=== PATIENT | male | born 1980 | race Caucasian/White ===

== ENCOUNTER 2017-01-28 08:44 | Emergency (ER) | payer OTHER, MEDICAID ==
[2017-01-28] MEDS ORDERED: INSULIN REGULAR HUMAN 100 UNIT/ML SC ONE (08:49)
--- NOTE | 2017-01-28 08:53 | EDPHY ---
H & P Source: Patient Exam Limitations: No limitations - Medical/Surgical History Hx Asthma: No Hx Chronic Respiratory Disease: No Hx Diabetes: No Hx Cardiac Disease: No Hx Renal Disease: No Hx Cirrhosis: No Hx Alcoholism: No Other PMH: Bipolar, asthma, diabetes - Family History Significant Family History: No pertinent family hx - Social History Alcohol Use: Sober Drug Use: None HPI/ROS: CHIEF COMPLAINT: Manic HISTORY OF PRESENT ILLNESS: The patient is a 36-year-old man with a history of bipolar who is brought to the emergency department by police and EMS. They state that he was walking in and out of traffic and handed his wallet to a homeless man. Patient reports that he had a week-long stay at [facility] last month. He is also diabetic an 8 this morning and forgot to take his insulin. His blood sugar was 360. He states that he would typically take about 10 units of insulin for this level. He denies fevers or recent illness. He denies chest pain or shortness of breath. REVIEW OF SYSTEMS: Constitutional: denies: chills, fever, recent illness, recent injury EENTM: denies: blurred vision, double vision, nose congestion Respiratory: denies: cough, shortness of breath Cardiac: denies: chest pain, irregular heart rate, lightheadedness, palpitations Gastrointestinal/Abdominal: denies: abdominal pain, diarrhea, nausea, vomiting, blood streaked stools Genitourinary: denies: dysuria, frequency, hematuria, pain Musculoskeletal: denies: joint pain, muscle pain Skin: denies: lesions, rash, jaundice, bruising Neurological: denies: headache, numbness, paresthesia, tingling, dizziness, weakness Hematologic/Lymphatic: denies: blood clots, easy bleeding, easy bruising Immunologic/allergic: denies: HIV/AIDS, transplant EXAM: GENERAL: Well-appearing, well-nourished and in no acute distress. HEAD: Atraumatic, normocephalic. EYES: Pupils equal round and reactive to light, extraocular movements intact, sclera anicteric, conjunctiva are normal. ENT: TMs normal, nares patent, oropharynx clear without exudates. Moist mucous membranes. NECK: Normal range of motion, supple without lymphadenopathy or JVD. LUNGS: Breath sounds clear to auscultation bilaterally and equal. No wheezes rales or rhonchi. HEART: Regular rate and rhythm without murmurs, rubs or gallops. ABDOMEN: Soft, nontender, normoactive bowel sounds. No guarding, no rebound. No masses appreciated. BACK: No CVA tenderness, no spinal tenderness, step-offs or deformities EXTREMITIES: Normal range of motion, no pitting or edema. No clubbing or cyanosis. NEUROLOGICAL: Cranial nerves II through XII grossly intact. Normal speech, normal gait. 5/5 strength, normal movement in all extremities, normal sensation PSYCH: Normal mood, normal affect. SKIN: Warm, dry, normal turgor, no visible rashes or lesions. (Joseluis Hernandez) Constitutional: Initial Vital Signs Temperature (C) 37 C 01/28/17 08:48 Heart Rate 109 H 01/28/17 08:48 Respiratory Rate 20 01/28/17 08:48 Blood Pressure 146/91 H 01/28/17 08:48 O2 Sat (%) 94 01/28/17 08:48 O2 Delivery Mode Room Air Allergies/Adverse Reactions: sulfamethoxazole [From Bactrim] Allergy (Verified 01/28/17 08:54) trimethoprim [From Bactrim] Allergy (Verified 01/28/17 08:54) Home Medications: Medication Instructions Recorded Insulin Glargine,Hum.rec.anlog 17 - 24 unit SQ DAILY 01/28/17 [Toujeo Solostar] Insulin Lispro [Humalog] 0 unit SQ TIDMEAL 01/28/17 Lisinopril [Zestril 5 mg (*)] 5 mg PO DAILY 01/28/17 Medical Decision Making ED Course/Re-evaluation: Mental health has evaluated patient. They plan to admit him to the inpatient psychiatric service. Care transferred to Dr. Jossy Vines at shift change. ( Joseluis Hernandez) Differential Diagnosis: Partial list of the Differential diagnosis considered include but were not limited to; Paco, bipolar, depression, substance abuse and although unlikely based on the history and physical exam, I also considered head injury, infection. (Joseluis Hernandez) Other Provider: I assumed care of the patient from Dr. Hernandez at change of shift, 3:00 p.m.. Patient will be admitted to [facility]. Transfer paperwork was signed by myself and the patient was transferred without incident. (Jossy Vines) - Data Points Laboratory Results: Laboratory Results 01/28/17 09:10 01/28/17 11:45 Medications Given: Discontinued Medications Sodium Chloride (Ns) 1,000 mls @ 0 mls/hr IV ONCE ONE PRN Reason: Wide Open Stop: 01/28/17 10:50 Last Admin: 01/28/17 10:50 Dose: 1,000 mls Insulin Human Regular (Humulin R) 10 unit SC EDNOW ONE Stop: 01/28/17 08:50 Last Admin: 01/28/17 09:08 Dose: 10 units Departure - Departure Disposition: Other Psych, Not [facility] Clinical Impression: Bipolar disorder with severe paco Condition: Fair Referrals: Patient,NotPresent [Unknown] - As per Instructions
[2017-01-28 09:25] LABS: % IMMATURE GRANULYOCYTES 0.5 % (0.0-1.1); ABSOLUTE IMMATURE GRANULOCYTES 0.06 10^3/uL (0.00-0.10); ADD DIFF? NO; ADD MORPH? NO; ADD SCAN? NO; ATYPICAL LYMPHOCYTE FLAG 0 (0-99); FRAGMENT RBC FLAG 0 (0-99); HEMATOCRIT 40.7 % (40.0-51.0); HEMOGLOBIN 13.9 g/dL (13.7-17.5); LEFT SHIFT FLG 0 (0-99); LIPEMIA HEMOLYSIS FLAG 90 (0-99); MEAN CELL HEMOGLOBIN 31.9 pg (27.9-34.1); MEAN CELL HEMOGLOBIN CONCENTR. 34.2 g/dL (32.4-36.7); MEAN CELL VOLUME 93.3 fL (81.5-99.8); MEAN PLATELET VOLUME 10.4 fL (8.7-11.7); PLATELET CLUMPS FLAG 30 (0-99); PLATELET COUNT 255 10^3/uL (150-400); RED BLOOD CELL COUNT 4.36 10^6/uL (4.40-6.38); RED CELL DISTRIBUTION WIDTH 12.6 % (11.5-15.2)
[2017-01-28] MEDS ORDERED: NS 1,000 ML IV ONE (10:49)
[2017-01-28 11:43] LABS: ANION GAP 11 mEq/L (8-16); CALCIUM 8.2 mg/dL (8.5-10.4); CARBON DIOXIDE 20 mEq/l (22-31); CHLORIDE 101 mEq/L (97-110); CREATININE 0.9 mg/dL (0.7-1.3); GLOMERULAR FILTRATION RATE > 60; GLUCOSE 296 mg/dL (70-100); POTASSIUM 4.2 mEq/L (3.5-5.2); SODIUM 132 mEq/L (134-144)
[2017-01-28 12:17] LABS: ANION GAP 12 mEq/L (8-16); CALCIUM 8.4 mg/dL (8.5-10.4); CARBON DIOXIDE 23 mEq/l (22-31); CHLORIDE 105 mEq/L (97-110); CREATININE 0.9 mg/dL (0.7-1.3); GLOMERULAR FILTRATION RATE > 60; GLUCOSE 150 mg/dL (70-100); SODIUM 140 mEq/L (134-144)
[2017-01-28 16:43] VITALS: BP 150/82; PULSE 102; RESP 16; TEMP 97.7; O2SAT 96
== END 2017-01-28 19:22 ==
DX: F31.13 Bipolar disorder, current episode manic without psychotic features, severe (principal); E11.9 Type 2 diabetes mellitus without complications; J45.909 Unspecified asthma, uncomplicated; Z79.4 Long term (current) use of insulin
CPT/HCPCS: 80305; J1815